=== PATIENT | female | born 1960 | race Hispanic/Latino ===

== ENCOUNTER → 2020-01-05 | Day surgery (SDC) | payer BC ==
[~2020-01-05] MED LIST: EPHEDRINE SULFATE INJ 50 MG/ML VIAL ONE; FENTANYL CITRATE/PF 100MCG/2 ML INJ ONE; HYOSCYAMINE 0.125 MG TAB ONE; LIDOCAINE HCL 2% LOCAL INJ 5 ML SDV VIAL INJ ONE; LISINOPRIL2.5 MG PO; METFORMIN HCL500 MG PO; MIDAZOLAM HCL 2 MG/2 ML VIAL ONE; PROPOFOL IV EMULSION 10 MG/ML 50 ML VIAL ONE
--- OUTSIDE RECORDS SUMMARY | 2020-01-05 08:52 | XMS REPORT ---
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 Allergies, Adverse Reactions, Alerts This patient has no known allergies or adverse reactions. Medications This patient has no known medications. Results Test Description Test Time Test Comments Text Results Atomic Results Result Comments SCR MAMM BILATERAL TOSHIA CAD DIGITAL 2019-12-05 10:58:25 - SCR MAMM BILATERAL TOSHIA CAD DIGITALBILATERAL DIGITAL SCREENING MAMMOGRAM 3D/2D WITH CAD: 12/04/2019CLINICAL: Asymptomatic. Digital breast tomosynthesis was performed in addition to routine CC and MLO views. Current mammographic images were evaluated by either a Awareness Card M-Vu or a [employer] ImageChecker CAD (computer aided detection system). No prior exams were available for comparison. There are sc attered fibroglandular tissues in both breasts. A 7 mm asymmetry only seen in the left breast medially approximately 7 cm from the nipple.No suspicious mass, architectural distortion, malignant type calcification, or lymph node abnormality detected in the right breast. IMPRESSION: INCOMPLETE: ADDITIONAL IMAGING EVALUATION NEEDEDA 7 mm asymmetry only seen in the left breast medially approximately 7 cm from the nipple. Spot compression toshia synthesis and possible ultrasound is recommended at this time.Josafat Holland M.D. ss/:12/05/2019 10:58:25 Attending Technologist: Malathi SANTIAGO, [facility]-FWImaging Technologist: Tania SANTIAGO, [facility]-FWletter sent: Additional Imaging Mammogram BI-RADS: 0 Incomplete: Additional Imaging Evaluation Needed
[2020-01-05 11:42] VITALS: BP 125/69
--- NOTE | 2020-01-05 12:37 | Operative Report ---
DATE OF PROCEDURE: 01/05/2020 SURGEON: Mike Jane MD PROCEDURE: Colonoscopy. INDICATIONS FOR PROCEDURE: Anal stenosis, constipation, colorectal cancer screening. MEDICATIONS: The patient was done under MAC, please see anesthesiologist's note. PROCEDURE IN DETAIL: With the patient in the left lateral decubitus position, the flexible fiberoptic Olympus colonoscope was inserted into the rectum with ease and advanced probably to the distal transverse to the distal ascending colon. The scope could not be advanced any further secondary to the presence of a large amount of fecal material. There was also scattered [id number] amount of fecal material in the left colon. Whatever was visualized mucosa overlying the transverse, descending, and rectum grossly appeared to be within normal limits. The scope was then retroflexed into the distal rectum and small internal hemorrhoids were noted, none of which was actively bleeding. The scope was then straightened out, it was subsequently withdrawn, and the patient tolerated the procedure well. IMPRESSION: 1. Poor prep. 2. Internal hemorrhoids. 3. Stenotic anal canal. Needs a followup colonoscopy after a better prep. Mike Jane MD [facility] [place] /[id number] cc: Rebecca Carlson MD
== END | disposition home or self-care (01) ==
LOC: OR 08:45
PROVIDERS: ATTEND Internal Medicine Gastroenterology
DX: K59.09 Other constipation (principal); K62.4 Stenosis of anus and rectum; K62.89 Other specified diseases of anus and rectum; K64.4 Residual hemorrhoidal skin tags; K64.8 Other hemorrhoids; I10 Essential (primary) hypertension; E11.9 Type 2 diabetes mellitus without complications; Z01.810 Encounter for preprocedural cardiovascular examination; Z79.84 Long term (current) use of oral hypoglycemic drugs; Z68.28 Body mass index [BMI] 28.0-28.9, adult
CPT/HCPCS: 36415; 45378; 82948; 93005; J2001; J2250; J2704; J3010